=== PATIENT | female | born 1980 | race African-American/Black ===

== ENCOUNTER 2019-09-19 08:38 | Day surgery (SDC) | payer BC, MEDICAID, OTHER ==
[2019-09-11 09:35] LABS: MEAN CORPUSCULAR HEMOGLOBIN 32.1 pg (27.0-33.4); MEAN CORPUSCULAR HGB CONC 34.2 g/dL (32.0-36.0); MEAN CORPUSCULAR VOLUME 94 fl (80-97); PLATELET COUNT 184 10^3/uL (150-450); RED BLOOD COUNT 4.36 10^6/uL (3.72-5.28); RED CELL DISTRIBUTION WIDTH 12.7 % (11.5-14.0); WHITE BLOOD COUNT 4.5 10^3/uL (4.0-10.5)
[2019-09-11 10:00] LABS: ALBUMIN 4.3 g/dL (3.5-5.0); ALKALINE PHOSPHATASE 48 U/L (38-126); ANION GAP 7 (5-19); ASPARTATE AMINO TRANSFERASE 19 U/L (14-36); BILIRUBIN,DIRECT 0.1 mg/dL (0.0-0.4); BILIRUBIN,TOTAL 0.8 mg/dL (0.2-1.3); BLOOD UREA NITROGEN 8 mg/dL (7-20); CALCIUM 10.4 mg/dL (8.4-10.2); CARBON DIOXIDE 29 mmol/L (22-30); CHLORIDE 106 mmol/L (98-107); GLUCOSE 77 mg/dL (75-110); POTASSIUM 4.5 mmol/L (3.6-5.0); TOTAL PROTEIN 7.2 g/dL (6.3-8.2)
[2019-09-11 10:24] LABS: APPEARANCE,URINE CLEAR; BILIRUBIN,URINE NEGATIVE (NEGATIVE); COLOR,URINE YELLOW; GLUCOSE, URINE NEGATIVE (NEGATIVE); KETONES,URINE NEGATIVE (NEGATIVE); LEUKOCYTE ESTERASE,URINE NEGATIVE (NEGATIVE); NITRITE,URINE NEGATIVE (NEGATIVE); PROTEIN,URINE NEGATIVE (NEGATIVE); UROBILINOGEN,URINE NEGATIVE mg/dL (<2.0)
[~2019-09-19 08:38] MED LIST: CEFAZOLIN INJ 1 GM VIAL ONE; CEFAZOLIN SODIUM 1 GM in DEXTROSE 5%-WATER 50 ML IV PRN; DEXAMETHASONE SOD PHOSPHATE INJ 4 MG/1 ML VIAL ONE; KETOROLAC TROMETHAMINE 60 MG/2 ML SDV ONE; LACTATED RINGERS 1000 ML IV PRN; LIDOCAINE 0.5% INJ-PF (5 MG/ML) 50 ML SDV SUBCUT PRN; LIDOCAINE 2% INJ-PF (20 MG/ML) 2 ML AMPUL ONE; ONDANSETRON HCL INJ/PF 4 MG/2 ML SDV ONE; SUCCINYLCHOLINE CHLORIDE INJ 200 MG/10 ML VIAL ONE; VECURONIUM BROMIDE INJ 10 MG VIAL IV ONE
[2019-09-19] MEDS ORDERED: FAMOTIDINE INJ/PF 20 MG/2 ML SDV IV ONE (09:47)
[2019-09-19] MEDS ORDERED: SCOPOLAMINE HYDROBROMIDE 1.5 MG PATCH.TD72 ONE (09:47)
[2019-09-19] MEDS ORDERED: MIDAZOLAM 2 MG/2 ML INJ ONE ×2 (09:47→10:19)
[2019-09-19] MEDS ORDERED: DEXAMETHASONE SOD PHOSPHATE INJ 4 MG/1 ML VIAL ONE (09:47)
[2019-09-19] MEDS ORDERED: RINGERS SOLUTION,LACTATED 1,000 ML IV ONE (10:00)
[2019-09-19] MEDS ORDERED: FENTANYL CITRATE INJ/PF 100 MCG/2 ML AMPUL ONE (10:19)
[2019-09-19] MEDS ORDERED: HYDROMORPHONE HCL INJ/PF 2 MG/ML AMPULE ONE (10:19)
[2019-09-19] MEDS ORDERED: PROPOFOL INJ 200 MG/20 ML VIAL IV ONE (10:20)
[2019-09-19] MEDS ORDERED: LIDOCAINE 1%/EPINEPHRINE INJ 20 ML VIAL ONE (10:28)
[2019-09-19] MEDS ORDERED: ESTROGENS,CONJUGATED 0.625 MG/1 GM 30 GM TUBE VG ONE (11:00)
[2019-09-19] MEDS ORDERED: FENTANYL CITRATE INJ/PF 100 MCG/2 ML AMPUL IV PRN ×3 (11:16)
[2019-09-19] MEDS ORDERED: DIPHENHYDRAMINE HCL 50 MG/ML VIAL IV PRN (11:16)
[2019-09-19] MEDS ORDERED: PROMETHAZINE HCL INJ 25 MG/1 ML VIAL IV PRN (11:16)
--- NOTE | 2019-09-19 13:14 | Operative Report ---
Operative Report DATE OF SURGERY: 09/19/19 PREOPERATIVE DIAGNOSIS: utervaginal prolapse, posterior vaginal prolapse POSTOPERATIVE DIAGNOSIS: same OPERATION: transvaginal hysterectomy with bilateral salpingectomy and posterior repair SURGEON: ROSY HAYDEN ANESTHESIA: GA TISSUE REMOVED OR ALTERED: Uterus cervix bilateral fallopian tubes COMPLICATIONS: none ESTIMATED BLOOD LOSS: 200 INTRAOPERATIVE FINDINGS: Normal uterus cervix and bilateral fallopian tubes ovaries with small follicular cysts grade 2 prolapse of the posterior vagina PROCEDURE: Patient was taken to the operating room prepared and draped in normal sterile fashion a dorsal lithotomy position in [facility]. Placed in the posterior fourchette retractor was placed in the anterior fourchette. Cervix was grasped with a triple tooth tenaculum and injected circumferentially with 10 cc of lidocaine with epi. The cervix was then scored with a 10 blade ventral fashion so was dissected away from the uterus using Erickson's. The anterior cul-de-sac was entered sharply with the Mayos and the weighted speculum was rep laced with a long weighted speculum. Anterior cul-de-sac was then also entered sharply. The uterosacral ligaments were then clamped and cut with Shaila clamps and Erickson scissors these pedicles were tied off with 2-0 Vicryl tagged with hemostats. The rest of the uterine artery was then ligated on both sides using the LigaSure. The uterus was flipped once we reached the fundus of the mucosa was ligated using the LigaSure until specimen was completely freed. We swept the bowel back with sponge sticks were the fallopian tubes were grasped on both sides with Babcocks. The fallopian tubes were removed with the LigaSure on both sides. Killam and retractors were repositioned. the angle of the vaginal cuff was then grasped with pickups and the vaginal cuff was closed with an 0 Vicryl runner. the posterior vaginal mucosa was grasped with Allises clamps in a vertical fashion this mucosa was then injected with approximately 5 cc of lidocaine with epi. the mucosa was then scored with a 15 blade in the midline the mucosa was dissected away from the rectum using Metzenbaums and blunt dissection and sharp dissection as needed. Once the defect was fully exposed posterior repair tear repair was then completed with 4 bridge sutures of 2-0 Vicryl placed the rectovaginal mucosa and the defect was tucked beneath the sutures . The redundant vaginal mucosa was then trimmed. The defect was then closed with an 2-0 Vicryl runner. The vagina was then inspected Kerlix packing with Premarin cream on the end was placed within the vagina. The procedure was concluded. The patient was taken to recovery in stable condition sponge lap and needle counts were correct x2
[2019-09-19] MEDS ORDERED: OXYCODONE-ACETAMINOPHEN 5-325 MG TABLET PO PRN (14:11)
[2019-09-19] MEDS ORDERED: MORPHINE SULFATE 10 MG/ML INJ IV PRN (14:14)
[2019-09-19] MEDS ORDERED: KETOROLAC TROMETHAMINE INJ/PF 30 MG/1 ML SDV IV SCH (15:00)
[2019-09-19] MEDS: ACETAMINOPHEN 1,000 MG/100 ML RTUPB IV SCH ×2 (15:00→23:29)
[2019-09-19] MEDS ORDERED: KETOROLAC TROMETHAMINE INJ/PF 30 MG/1 ML SDV ONE (16:26)
[2019-09-19] MEDS ORDERED: RINGERS SOLUTION,LACTATED 500 ML IV ONE (17:30)
[2019-09-19] MEDS: KETOROLAC TROMETHAMINE INJ/PF 30 MG/1 ML SDV IV SCH ×2 (19:07→22:17)
[2019-09-19] MEDS: RINGERS SOLUTION,LACTATED 1,000 ML IV PRN (19:30)
[2019-09-19] MEDS ORDERED: LORATADINE 10 MG TABLET PO SCH (22:00)
[2019-09-19] MEDS ORDERED: [UNRECOGNIZED DRUG - OTHER] PO SCH (22:00)
[2019-09-19] MEDS ORDERED: SERTRALINE HCL 50 MG TABLET PO SCH (22:00)
[2019-09-20 04:49] LABS: HEMATOCRIT 36.4 % (36.0-47.0); HEMOGLOBIN 12.4 g/dL (12.0-15.5); MEAN CORPUSCULAR HEMOGLOBIN 31.8 pg (27.0-33.4); MEAN CORPUSCULAR HGB CONC 34.1 g/dL (32.0-36.0); MEAN CORPUSCULAR VOLUME 93 fl (80-97); PLATELET COUNT 175 10^3/uL (150-450); RED BLOOD COUNT 3.89 10^6/uL (3.72-5.28); RED CELL DISTRIBUTION WIDTH 12.6 % (11.5-14.0); WHITE BLOOD COUNT 14.7 10^3/uL (4.0-10.5)
[2019-09-20] MEDS: KETOROLAC TROMETHAMINE INJ/PF 30 MG/1 ML SDV IV SCH (05:44)
[2019-09-20] MEDS: RINGERS SOLUTION,LACTATED 1,000 ML IV PRN (05:44)
--- NOTE | 2019-09-20 07:29 | PDOC DISCHARGE SUMMARY ---
Impression - Admit/DC Date/PCP Admission Date/Primary Care Provider: MEG ROBERSON PA-C Discharge Date: 09/20/19 - Discharge Diagnosis (1) Anemia Is this a current diagnosis for this admission?: Yes (2) Uterovaginal prolapse, complete Is this a current diagnosis for this admission?: Yes (3) Posterior vaginal wall prolapse Is this a current diagnosis for this admission?: Yes (4) Abnormal uterine and vaginal bleeding, unspecified Is this a current diagnosis for this admission?: Yes - Additional Information Resuscitation Status: Full Code Discharge Diet: As Tolerated Discharge Activity: Balance Activity w/Rest, No Lifting Over 10 Pounds, No Lifting/Push/Pulling, Pelvic Rest, No tub bath Referrals: MEG ROBERSON PA-C [Primary Care Provider] - Prescriptions: Oxycodone HCl/Acetaminophen [Percocet 5-325 mg Tablet] 1 tab PO Q6HP PRN #30 tablet PRN Reason: Ibuprofen [Motrin 800 mg Tablet] 800 mg PO Q8HP PRN #60 tablet PRN Reason: Home Medications: Glucosam/Chondr/Collagn/Hyalur [Glucosamine & Chondroitin Cap] 1 each PO QHS 09/11/19 Iron,Carbonyl/Ascorbic Acid [Vitron-C Tablet] 1 each PO QHS 09/11/19 Loratadine [Claritin] 10 mg PO QHS 09/11/19 Sertraline HCl [Zoloft 50 mg Tablet] 50 mg PO QHS 09/11/19 Cholecalciferol (Vitamin D3) [Vitamin D3] 25 mcg PO DAILY 09/19/19 Ibuprofen [Motrin 800 mg Tablet] 800 mg PO Q8HP PRN #60 tablet 09/20/19 Oxycodone HCl/Acetaminophen [Percocet 5-325 mg Tablet] 1 tab PO Q6HP PRN #30 tablet 09/20/19 Additional Information: [facility] w/ b/l salpingectomy and posterior vaginal wall repair done withameliaut edelmirautly. Pat has had unremarkable post op course. is voiding well and passing flatus. ready for discharge home. History of Present Illiness History of Present Illness: TIARRA ANGELES is a 39 year old female Physical Exam - Physical Exam Vital Signs: Temp Pulse Resp BP Pulse Ox 98.2 F 68 16 115/60 96 09/20/19 04:00 09/20/19 04:00 09/20/19 04:00 09/20/19 04:00 09/20/19 04:00 Intake & Output 09/19/19 09/20/19 09/21/19 06:59 06:59 06:59 Intake Total 4100 Output Total 2500 Balance 1600 Weight 98.4 kg Results Laboratory Results: WBC 14.7 10^3/uL (4.0-10.5) H 09/20/19 04:29 RBC 3.89 10^6/uL (3.72-5.28) 09/20/19 04:29 Hgb 12.4 g/dL (12.0-15.5) 09/20/19 04:29 Hct 36.4 % (36.0-47.0) 09/20/19 04:29 MCV 93 fl (80-97) 09/20/19 04:29 MCH 31.8 pg (27.0-33.4) 09/20/19 04:29 MCHC 34.1 g/dL (32.0-36.0) 09/20/19 04:29 RDW 12.6 % (11.5-14.0) 09/20/19 04:29 Plt Count 175 10^3/uL (150-450) 09/20/19 04:29 Sodium 142.4 mmol/L (137-145) 09/11/19 08:59 Potassium 4.5 mmol/L (3.6-5.0) 09/11/19 08:59 Chloride 106 mmol/L (98-107) 09/11/19 08:59 Carbon Dioxide 29 mmol/L (22-30) 09/11/19 08:59 Anion Gap 7 (5-19) 09/11/19 08:59 BUN 8 mg/dL (7-20) 09/11/19 08:59 Creatinine 0.78 mg/dL (0.52-1.25) 09/11/19 08:59 Est GFR ( Amer) > 60 (>60) 09/11/19 08:59 Est GFR (MDRD) Non-Af > 60 (>60) 09/11/19 08:59 Glucose 77 mg/dL (75-110) 09/11/19 08:59 Calcium 10.4 mg/dL (8.4-10.2) H 09/11/19 08:59 Total Bilirubin 0.8 mg/dL (0.2-1.3) 09/11/19 08:59 Direct Bilirubin 0.1 mg/dL (0.0-0.4) 09/11/19 08:59 Neonat Total Bilirubin Not Reportable 09/11/19 08:59 Neonat Direct Bilirubin Not Reportable 09/11/19 08:59 Neonat Indirect Bili Not Reportable 09/11/19 08:59 AST 19 U/L (14-36) 09/11/19 08:59 ALT 11 U/L (<35) 09/11/19 08:59 Alkaline Phosphatase 48 U/L (38-126) 09/11/19 08:59 Total Protein 7.2 g/dL (6.3-8.2) 09/11/19 08:59 Albumin 4.3 g/dL (3.5-5.0) 09/11/19 08:59 Urine Color YELLOW 09/11/19 09:45 Urine Appearance CLEAR 09/11/19 09:45 Urine pH 7.0 (5.0-9.0) 09/11/19 09:45 Ur Specific [place] 1.010 09/11/19 09:45 Urine Protein NEGATIVE mg/dL (NEGATIVE) 09/11/19 09:45 Urine Glucose (UA) NEGATIVE mg/dL (NEGATIVE) 09/11/19 09:45 Urine Ketones NEGATIVE mg/dL (NEGATIVE) 09/11/19 09:45 Urine Blood MODERATE (NEGATIVE) H 09/11/19 09:45 Urine Nitrite NEGATIVE (NEGATIVE) 09/11/19 09:45 Urine Bilirubin NEGATIVE (NEGATIVE) 09/11/19 09:45 Urine Urobilinogen NEGATIVE mg/dL (<2.0) 09/11/19 09:45 Ur Leukocyte Esterase NEGATIVE (NEGATIVE) 09/11/19 09:45 Urine RBC (Auto) 27 /HPF 09/11/19 09:45 Squamous Epi Cells Auto <1 /HPF 09/11/19 09:45 Urine Mucus (Auto) RARE /LPF 09/11/19 09:45 Urine Ascorbic Acid NEGATIVE (NEGATIVE) 09/11/19 09:45 Urine HCG, Qual NEGATIVE (NEGATIVE) 09/19/19 08:40 Blood Type O POSITIVE 09/17/19 13:42 Antibody Screen NEGATIVE 09/17/19 13:42 Stroke Is this a Stroke Patient?: No Acute Heart Failure - Is this a Heart Failure Patient?: No
[2019-09-20 09:32] VITALS: BP 115/60
[2019-09-20] MEDS ORDERED: IBUPROFEN 800 MG TABLET PO PRN (14:00)
== END 2019-09-20 10:30 | disposition home or self-care (01) ==
LOC: OROUT 08:38 → 2N 13:55 → OROUT 09-20 10:30
PROVIDERS: ATTEND Obstetrics & Gynecology
DX: N81.6 Rectocele (principal); N81.3 Complete uterovaginal prolapse; N93.9 Abnormal uterine and vaginal bleeding, unspecified; N83.02 Follicular cyst of left ovary; N83.01 Follicular cyst of right ovary; N87.0 Mild cervical dysplasia; D25.9 Leiomyoma of uterus, unspecified; D64.9 Anemia, unspecified; Z79.899 Other long term (current) drug therapy; Z32.02 Encounter for pregnancy test, result negative
CPT/HCPCS: 58262; 86900; 86901; 36415 ×3; 86850; 85027 ×2; 81025; 80053; 81001; 88307 ×2; 00944; 57250; J2250; J0690; J1100; J1885 ×3; J3490 ×4; J3010; J1170; J0330; J2405; J7060; J7120 ×3; J2704; S0028; J0131; 944